=== PATIENT | male | born 1975 | race Caucasian/White ===

== ENCOUNTER 2018-09-18 00:31 | Emergency (ER) | payer OTHER ==
[~2018-09-18] VITALS: Ht 170.2 cm; Wt 89.5 kg
[~2018-09-18 00:31] MED LIST: AMOX1TAB10 PO; IBUP800T48 PO
[2018-09-18 00:35] VITALS: BP 142/73; PULSE 81; RESP 18; Ht 170.2 cm; Wt 89.5 kg
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
[2018-09-18] MEDS ORDERED: DIPHTH/TET/ACEL PERTUSS (ADULT) 0.5 ML VIAL IM* ONE (01:30)
[2018-09-18] MEDS ORDERED: IBUPROFEN 800 MG TAB PO ONE (01:30)
[2018-09-18] MEDS ORDERED: LIDOCAINE 1% (MDV) 20 ML INJ SC ONE (01:30)
[2018-09-18] MEDS ORDERED: AMOXICILLIN/CLAV 875 MG TAB PO ONE (02:30)
[2018-09-18] MEDS ORDERED: BACITRACIN 0.9 GM OINT TOP ONE (02:30)
[2018-09-18] MEDS ORDERED: BACITRACIN 0.5%/ZINC 28.35 GM OINT TOP ONE (02:30)
== END 2018-09-18 02:59 | disposition home or self-care (01) ==
LOC: FTE 00:31
DX: S61.217A Laceration without foreign body of left little finger without damage to nail, initial encounter (principal); S61.432A Puncture wound without foreign body of left hand, initial encounter; W50.3XXA Accidental bite by another person, initial encounter; Y92.89 Other specified places as the place of occurrence of the external cause; Z23 Encounter for immunization; Z85.47 Personal history of malignant neoplasm of testis
CPT/HCPCS: 86703; 86704; 86706; 86708; 86709; 86803; 87340; 87536; 90471; 90715